=== PATIENT | female | born 1985 | race Caucasian/White ===

== ENCOUNTER 2017-08-29 06:08 | Inpatient (IN) | payer OTHER ==
[~2017-08-29] VITALS: Ht 160 cm; Wt 78.0 kg
[2017-08-29] MEDS ORDERED: LACTATED RINGERS 1,000 ML IV SCH (06:17)
[2017-08-29] MEDS ORDERED: D5%-LACTATED RINGERS 1,000 ML IV SCH (06:17)
[2017-08-29] MEDS ORDERED: OXYTOCIN 30U/ 0.9% NaCL 500ML 500 ML IV PRN (06:17)
[2017-08-29] MEDS ORDERED: OXYTOCIN 30U/ 0.9% NaCL 500ML 500 ML IV ONE (06:17)
[2017-08-29] MEDS ORDERED: ONDANSETRON 2MG/ML, 2ML IVPush PRN (06:30)
[2017-08-29] MEDS ORDERED: FENTANYL PF 100 MCG/2ML IV PRN (06:30)
[2017-08-29] MEDS ORDERED: TERBUTALINE 1 MG/ML, 1ML IVPush PRN (06:30)
[2017-08-29] MEDS ORDERED: PLEASE ENTER ALLERGIES MC SCH (06:30)
[2017-08-29] MEDS ORDERED: FENTANYL PF 100 MCG/2ML IVPush PRN (06:30)
[2017-08-29] MEDS ORDERED: CALCIUM CARBONATE 500 MG TAB.CHEW PO PRN ×2 (06:30→14:30)
[2017-08-29 06:43] LABS: BASOPHILS # (AUTO) 0.04 x10^3/uL (0-0.1); BASOPHILS % (AUTO) 1 % (0-1); EOSINOPHILS % (AUTO) 1 % (1-7); LYMPHOCYTES # (AUTO) 1.96 x10^3/uL (1-3.4); LYMPHOCYTES % (AUTO) 25 % (22-44); MD NO; MEAN CORPUSCULAR HEMOGLOBIN 31.6 pg (27.0-34.8); MEAN CORPUSCULAR HGB CONC 34.4 g/dL (32.4-35.8); MEAN CORPUSCULAR VOLUME 91.8 fL (80-100); MEAN PLATELET VOLUME 8.9 fL (7.4-10.4); MONOCYTES # (AUTO) 0.38 x10^3/uL (0.2-0.8); MONOCYTES % (AUTO) 5 % (2-9); NEUTROPHILS # (AUTO) 5.44 x10^3/uL (1.8-6.8); NEUTROPHILS % (AUTO) 69 % (42-75); PLATELET COUNT 242 x10^3/uL (130-400); RED BLOOD COUNT 4.02 x10^6/uL (3.82-5.3); RED CELL DISTRIBUTION WIDTH 12.9 % (9.6-15.2)
[2017-08-29] MEDS ORDERED: OXYTOCIN 30U/ 0.9% NaCL 500ML 500 ML ONE ×2 (06:54→15:38)
[2017-08-29 07:16] VITALS: BP 111/35
[2017-08-29] MEDS ORDERED: FENTANYL PF 100 MCG/2ML ONE ×2 (11:11→11:27)
[2017-08-29] MEDS ORDERED: FENTANYL/BUPIV./NS/PF 250 ML EPIDCONT SCH (11:13)
[2017-08-29] MEDS ORDERED: BUPIVACAINE 0.25% ONE (11:28)
[2017-08-29] MEDS ORDERED: LACTATED RINGERS 1,000 ML IVBOLUS ONE (11:30)
[2017-08-29] MEDS ORDERED: LACTATED RINGERS 1,000 ML IVBOLUS PRN (11:30)
[2017-08-29] MEDS ORDERED: FENTANYL/BUPIV./NS/PF 125 ML EPIDCONT SCH ×3 (12:00)
[2017-08-29] MEDS: LACTATED RINGERS 1,000 ML IV SCH ×2 (12:20→19:13)
[2017-08-29] MEDS ORDERED: OXYTOCIN 30U/ 0.9% NaCL 500ML 500 ML IV SCH (14:03)
[2017-08-29] MEDS ORDERED: ACETAMINOPHEN 325 MG TABLET PO PRN ×2 (14:30)
[2017-08-29] MEDS ORDERED: BISACODYL 10 MG SUPP PR PRN (14:30)
[2017-08-29] MEDS ORDERED: ONDANSETRON 2MG/ML, 2ML IV PRN (14:30)
[2017-08-29] MEDS ORDERED: HYDROcodone/APAP 5/325 TABLET PO PRN ×2 (14:30)
[2017-08-29] MEDS ORDERED: MISOPROSTOL 200 MCG TABLET PR PRN (14:30)
[2017-08-29] MEDS: OXYTOCIN 30U/ 0.9% NaCL 500ML 500 ML IV SCH (15:41)
[2017-08-29 16:10] VITALS: BP 110/70
[2017-08-29] MEDS: IBUPROFEN 600 MG TABLET PO PRN (16:16)
[2017-08-29 19:30] VITALS: BP 104/62
[2017-08-29 21:46] LABS: BASOPHILS # (AUTO) 0.13 x10^3/uL (0-0.1); BASOPHILS % (AUTO) 1 % (0-1); EOSINOPHILS # (AUTO) 0.05 x10^3/uL (0-0.4); EOSINOPHILS % (AUTO) 0 % (1-7); LYMPHOCYTES # (AUTO) 2.02 x10^3/uL (1-3.4); LYMPHOCYTES % (AUTO) 19 % (22-44); MD NO; MEAN CORPUSCULAR HEMOGLOBIN 31.5 pg (27.0-34.8); MEAN CORPUSCULAR HGB CONC 34.3 g/dL (32.4-35.8); MEAN CORPUSCULAR VOLUME 91.9 fL (80-100); MEAN PLATELET VOLUME 8.9 fL (7.4-10.4); MONOCYTES % (AUTO) 5 % (2-9); NEUTROPHILS # (AUTO) 7.88 x10^3/uL (1.8-6.8); NEUTROPHILS % (AUTO) 75 % (42-75); PLATELET COUNT 178 x10^3/uL (130-400); RED BLOOD COUNT 3.53 x10^6/uL (3.82-5.3); RED CELL DISTRIBUTION WIDTH 12.9 % (9.6-15.2)
[2017-08-29 23:50] VITALS: BP 102/63
[2017-08-30] MEDS: OXYTOCIN 30U/ 0.9% NaCL 500ML 500 ML IV SCH ×2 (00:03→03:18)
[2017-08-30] MEDS: IBUPROFEN 600 MG TABLET PO PRN ×2 (00:37→07:37)
[2017-08-30] MEDS: DOCUSATE 100 MG CAPSULE PO PRN ×2 (00:37→07:37)
[2017-08-30] MEDS ORDERED: RHOGAM FROM BLOOD BANK 1 NOTE EA IM/IV ONE (01:50)
[2017-08-30] MEDS: LACTATED RINGERS 1,000 ML IV SCH ×2 (03:13→03:17)
[2017-08-30 03:36] VITALS: BP 108/66
[2017-08-30 06:55] VITALS: BP 112/77
[2017-08-30] MEDS ORDERED: PRENATAL VIT/IRON/FA 1 EACH TABLET PO SCH (09:00)
[2017-08-30] MEDS ORDERED: FENTANYL/BUPIV./NS/PF 125 ML EPIDCONT SCH (11:13)
[2017-08-30] MEDS ORDERED: IBUP-1222 PO (11:16)
[2017-08-30] MEDS ORDERED: DOCU-131 PO (11:16)
== END 2017-08-30 14:04 | disposition home or self-care (01) | DRG 775 ==
LOC: LDIP 06:08 → 2NW 16:04
PROVIDERS: ADMIT Obstetrics & Gynecology; ATTEND Obstetrics & Gynecology
PROC: 10E0XZZ Delivery of Products of Conception, External Approach (ICD-10-PCS; principal; 2017-08-29)
PROC: 10907ZC Drainage of Amniotic Fluid, Therapeutic from Products of Conception, Via Natural or Artificial Opening (ICD-10-PCS; 2017-08-29)
PROC: 3E0R3BZ Introduction of Anesthetic Agent into Spinal Canal, Percutaneous Approach (ICD-10-PCS; 2017-08-29)
PROC: 00HU33Z Insertion of Infusion Device into Spinal Canal, Percutaneous Approach (ICD-10-PCS; 2017-08-29)
PROC: 3E033VJ Introduction of Other Hormone into Peripheral Vein, Percutaneous Approach (ICD-10-PCS; 2017-08-29)
PROC: 30233S1 Transfusion of Nonautologous Globulin into Peripheral Vein, Percutaneous Approach (ICD-10-PCS; 2017-08-30)
DX: O80 Encounter for full-term uncomplicated delivery (principal); Z37.0 Single live birth; Z3A.39 39 weeks gestation of pregnancy
CPT/HCPCS: 36415; 85025; 85461; 86850; 86900; J2790; J3010; J3490; J2590; J7120